=== PATIENT | male | born 1965 | race Caucasian/White ===

== ENCOUNTER → 2024-08-17 06:58 | Outpatient (REF) | payer BC, SELFPAY | LOC: RCS 06:58 | PROVIDERS: ATTENDING PHYSICIAN Internal Medicine Interventional Cardiology; FAMILY PHYSICIAN Family Medicine | DX: I10 Essential (primary) hypertension (principal); E78.2 Mixed hyperlipidemia | CPT/HCPCS: 78452; 93017; A9500 ==

== ENCOUNTER → 2024-08-23 16:00 | Outpatient (REF) | payer BC, SELFPAY | LOC: RCS 16:00 | PROVIDERS: ATTENDING PHYSICIAN Internal Medicine Interventional Cardiology; FAMILY PHYSICIAN Family Medicine | DX: I10 Essential (primary) hypertension (principal); E78.2 Mixed hyperlipidemia | CPT/HCPCS: 93306 ==